=== PATIENT | male | born 1990 | race Caucasian/White ===

== ENCOUNTER 2021-08-13 17:05 | Emergency (ER) | payer OTHER ==
[~2021-08-13 17:05] MED LIST: HYDROXYZINE HCL50 MG PO
[2021-08-13 18:30] LABS: HEMOGLOBIN 13.2 gm/dl (14.0-17.5); RED BLOOD COUNT 4.78 M/UL (4.20-5.50); WHITE BLOOD COUNT 7.2 K/UL (4.5-11.0)
[2021-08-13 18:48] LABS: BUN/CREATININE RATIO 13 (0-10)
== END 2021-08-14 01:15 | disposition home or self-care (01) ==
LOC: ER1 17:05
PROVIDERS: Physician Assistant
DX: K40.90 Unilateral inguinal hernia, without obstruction or gangrene, not specified as recurrent (principal)
CPT/HCPCS: 80053; 81001; 83690; 85025; 99283; Q9967